=== PATIENT | female | born 1985 | race Caucasian/White ===

== ENCOUNTER 2016-08-07 19:36 | Emergency (ER) | payer OTHER ==
--- NOTE | 2016-08-07 20:13 | ED CLINICAL REPORT ---
Clinical Report - Physicians/Mid Levels [facility] [address] [place] [address] 08/07/2016 19:39 Patient: JAROD MANDUJANO Time Seen: 19:51. Arrived- By private vehicle. Historian- patient. HISTORY OF PRESENT ILLNESS Chief Complaint: BACK PAIN. Onset- several days ago and it is still present. It was gradual in onset and has been waxing/waning. Modifying factors- worsened by walking, bending over or lifting. Relieved by remaining still. It is described as being moderate in degree and in the area of the left lower lumbar spine and left SI joint. The quality is noted to be "pain" and similar to prior episodes. No radiation. No bladder dysfunction, bowel dysfunction, sensory loss or motor loss. 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 Pain started gradually. No incontinence, ataxia or other problems. Patient notes the possibility of an injury but denies injury to the head or neck. Mechanism of injury- she was lifting, turning and bending. Occurred at work. Similar symptoms previously: REVIEW OF SYSTEMS Last normal menstrual period was 3 weeks ago. No fever, chills, difficulty with urination, urinary frequency or hematuria. No skin rash, headache, sore throat, cough or difficulty breathing. No abdominal pain, nausea, vomiting, diarrhea or black stools. No bloody stools. All systems otherwise negative, except as recorded above. PAST HISTORY Negative. See nurses notes. Has not had urinary calculi. Has not had UTI. ( History of HPV). Surgeries: No history of previous surgery. SOCIAL HISTORY Smoker- current status unknown. Occasional alcohol use. No drug use. ADDITIONAL NOTES The nursing notes have been reviewed. PHYSICAL EXAM Vital Signs: 08/07/2016 19:46 BP: 131/97. HR: 85. RR: 16. O2 saturation: 100%. Temp: 98.2 F. Appearance: Alert. Patient in moderate distress. HEENT: Normal external inspection. Eyes: No scleral icterus or pale conjunctivae. ENT: Pharynx normal. Neck: Normal inspection. Neck nontender. Painless ROM. CVS: Heart sounds normal. Pulses normal. Respiratory: No respiratory distress. Breath sounds normal. Abdomen: No visible injury. Soft and nontender. No organomegaly. No mass. Back: Normal inspection. Moderate soft tissue tenderness in the left lower lumbar area. No vertebral point tenderness. Skin: No cyanosis. Skin warm and dry. Normal skin color. Normal skin turgor. Skin not cool on palpation. No skin rash or pallor. Extremities: Extremities exhibit normal ROM. No lower extremity edema. Extremities nontender. No calf tenderness. Neuro: Oriented X 3. No motor deficit. No sensory deficit. Straight leg raising: negative on the right and negative on the left. Reflexes normal. Reflex exam: right patellar 2+, left patellar 2+, right Achilles 2+ and left Achilles 2+. PROGRESS AND PROCEDURES Course of Care: Dilaudid 1 mg with Phenergan 25 mg IM given. Clearly reproducible left lower lumbar paravertebral tenderness. No reason to suspect spinal / epidural infectious process / discitis. Pt does a lot of lifting and bending with work - c/w mechanical injury. 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 Pt is informed that she will need additional imaging if not improving with symptomatic treatment as expected. She needs a pcp - I will provide contact for [facility] (her has used this clinic in the past and is happy with it). No signs of UTI. No signs of cord compression and no radicular symptoms 08/07/2016 20:50 BP: 124/83. HR: 76. RR: 16. O2 saturation: 100%. Temp: 98.2 F. Patient/family counseled. Disposition: Discharged. Condition: stable and improved. CLINICAL IMPRESSION Acute lumbar strain. INSTRUCTIONS Apply ice. Do not work for three days. Warnings: SEDATIVE MEDICATION: You were given sedative medication during your visit. Do not drive or operate dangerous machinery. CONTROLLED SUBSTANCE WARNINGS. GENERAL WARNINGS: Return or contact your physician immediately if your condition worsens or changes unexpectedly, if not improving as expected, or if other problems arise. Prescription Medications: Hydrocodone/APAP 5mg/325mg: take 1 to 2 orally every 6 hours as needed for pain. Dispense fifteen (15). No refills. Ibuprofen 600mg tablets: take 1 tablet orally every 8 hours as needed for pain. Dispense thirty (30). No refills. Flexeril 10 mg: Take 1 orally every 8 hours as needed for muscle spasm. Dispense twenty (20). No refills. Substitution is permissible. OTC Medications: Acetaminophen (available over the counter): take according to label instructions. Follow-up with: [facility], , , [address], , [place], [address] Follow up in about two days. Call for the next available appointment. (Electronically signed by Virgilio Russo DO 08/07/2016 23:26)
--- NOTE | 2016-08-07 20:13 | ED CLINICAL REPORT ---
Clinical Report - Physicians/Mid Levels [facility] [address] [place] [address] 08/07/2016 19:39 Patient: JAROD MANDUJANO Time Seen: 19:51. Arrived- By private vehicle. Historian- patient. HISTORY OF PRESENT ILLNESS Chief Complaint: BACK PAIN. Onset- several days ago and it is still present. It was gradual in onset and has been waxing/waning. Modifying factors- worsened by walking, bending over or lifting. Relieved by remaining still. It is described as being moderate in degree and in the area of the left lower lumbar spine and left SI joint. The quality is noted to be "pain" and similar to prior episodes. No radiation. No bladder dysfunction, bowel dysfunction, sensory loss or motor loss. 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 Pain started gradually. No incontinence, ataxia or other problems. Patient notes the possibility of an injury but denies injury to the head or neck. Mechanism of injury- she was lifting, turning and bending. Occurred at work. Similar symptoms previously: REVIEW OF SYSTEMS Last normal menstrual period was 3 weeks ago. No fever, chills, difficulty with urination, urinary frequency or hematuria. No skin rash, headache, sore throat, cough or difficulty breathing. No abdominal pain, nausea, vomiting, diarrhea or black stools. No bloody stools. All systems otherwise negative, except as recorded above. PAST HISTORY Negative. See nurses notes. Has not had urinary calculi. Has not had UTI. ( History of HPV). Surgeries: No history of previous surgery. SOCIAL HISTORY Smoker- current status unknown. Occasional alcohol use. No drug use. ADDITIONAL NOTES The nursing notes have been reviewed. PHYSICAL EXAM Vital Signs: 08/07/2016 19:46 BP: 131/97. HR: 85. RR: 16. O2 saturation: 100%. Temp: 98.2 F. Appearance: Alert. Patient in moderate distress. HEENT: Normal external inspection. Eyes: No scleral icterus or pale conjunctivae. ENT: Pharynx normal. Neck: Normal inspection. Neck nontender. Painless ROM. CVS: Heart sounds normal. Pulses normal. Respiratory: No respiratory distress. Breath sounds normal. Abdomen: No visible injury. Soft and nontender. No organomegaly. No mass. Back: Normal inspection. Moderate soft tissue tenderness in the left lower lumbar area. No vertebral point tenderness. Skin: No cyanosis. Skin warm and dry. Normal skin color. Normal skin turgor. Skin not cool on palpation. No skin rash or pallor. Extremities: Extremities exhibit normal ROM. No lower extremity edema. Extremities nontender. No calf tenderness. Neuro: Oriented X 3. No motor deficit. No sensory deficit. Straight leg raising: negative on the right and negative on the left. Reflexes normal. Reflex exam: right patellar 2+, left patellar 2+, right Achilles 2+ and left Achilles 2+. PROGRESS AND PROCEDURES Course of Care: Dilaudid 1 mg with Phenergan 25 mg IM given. Clearly reproducible left lower lumbar paravertebral tenderness. No reason to suspect spinal / epidural infectious process / discitis. Pt does a lot of lifting and bending with work - c/w mechanical injury. 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 Pt is informed that she will need additional imaging if not improving with symptomatic treatment as expected. She needs a pcp - I will provide contact for [facility] (her has used this clinic in the past and is happy with it). No signs of UTI. No signs of cord compression and no radicular symptoms 08/07/2016 20:50 BP: 124/83. HR: 76. RR: 16. O2 saturation: 100%. Temp: 98.2 F. Patient/family counseled. Disposition: Discharged. Condition: stable and improved. CLINICAL IMPRESSION Acute lumbar strain. INSTRUCTIONS Apply ice. Do not work for three days. Warnings: SEDATIVE MEDICATION: You were given sedative medication during your visit. Do not drive or operate dangerous machinery. CONTROLLED SUBSTANCE WARNINGS. GENERAL WARNINGS: Return or contact your physician immediately if your condition worsens or changes unexpectedly, if not improving as expected, or if other problems arise. Prescription Medications: Hydrocodone/APAP 5mg/325mg: take 1 to 2 orally every 6 hours as needed for pain. Dispense fifteen (15). No refills. Ibuprofen 600mg tablets: take 1 tablet orally every 8 hours as needed for pain. Dispense thirty (30). No refills. Flexeril 10 mg: Take 1 orally every 8 hours as needed for muscle spasm. Dispense twenty (20). No refills. Substitution is permissible. OTC Medications: Acetaminophen (available over the counter): take according to label instructions. Follow-up with: [facility], , , [address], , [place], [address] Follow up in about two days. Call for the next available appointment. (Electronically signed by Virgilio Russo DO 08/07/2016 23:26)
--- NOTE | 2016-08-07 20:14 | ED NURSING NOTES ---
Clinical Report - Nurses [facility] [address] [place] [address] 08/07/2016 19:39 [id number] Triage time 19:46 Aug 07 2016. Acuity: LEVEL 4. Chief Complaint: BACK PAIN and (mid thoracic). 19:46 08/07/16. SEPSIS SCREEN: Sepsis Screen. Negative (no infection suspected/documented). SPENSER COMA SCORE: Spenser Coma Scale: 15- eyes open spontaneously (4); best verbal response- oriented x 4 (5); best motor response- obeys commands (6). --19:51 Izzy Burgos R.N. 19:46 08/07/16. BP: 131/97. HR: 85. RR: 16. O2 saturation: 100%. Temp: 98.2 F. Pain level now 8/10. --19:51 Izzy Burgos R.N. Weight: 56.6 kg stated. Height/Length: 62 inches Per Patient. BMI: 22.8. --19:45 Izzy Burgos R.N. Medications None. --19:49 Izzy Burgos R.N. Allergies No Known Drug Allergy. --19:49 Izzy Burgos R.N. Medication/allergy information source: the patient. --19:51 Izzy Burgos R.N. History Arrived by private vehicle. Historian: patient. Accompanied by family. Onset. (5 days ago). 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 Pain started gradually. No incontinence, ataxia or other problems). She has had trouble walking. No history of recent trauma. 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 (800 mg tid, last dose 5 pm). PAST MEDICAL HX: Last normal menstrual period- 3 weeks ago. SOCIAL HX: Heavy tobacco smoker- less than 1 pack per day. Occasional alcohol use. No drug use. No infectious disease exposure. ABUSE ASSESSMENT: No report of abuse. SELF HARM ASSESSMENT: A self harm assessment was performed. The patient answered "no" to the question "Have you recently felt down, depressed, or hopeless?", "Have you noticed less interest or pleasure in doing things?", "Do you have thoughts of harming or killing yourself?", "Are you here because you tried to hurt yourself?", "Have you ever tried to hurt yourself before today?", "Have you recently had thoughts about harming or killing others?" and "Do you have any dangerous items in your possession?". NUTRITIONAL RISK ASSESSMENT: The nutritional risk assessment revealed no deficiencies. FUNCTIONAL ASSESSMENT: Functional assessment: no impairments noted. LEARNING NEEDS ASSESSMENT: The learning needs assessment revealed no barriers. SKIN INTEGRITY ASSESSMENT: Skin integrity risk assessment completed. No skin integrity risk identified. --19:51 Izzy Burgos R.N. PROBLEMS: no known problems. ADDITIONAL SURGERIES: no known surgeries. Interventions ID band on patient. --19:51 Izzy Burgos R.N. PHYSICAL ASSESSMENT 19:52 08/07/16. Ambulatory to room. GENERAL / NEURO / PSYCH: Alert. Oriented X 4. Appears in pain. RESPIRATORY: Respirations not labored. CVS: Capillary refill less than 2 seconds. GI / : Abdomen soft. EXTREMITIES: Sensation intact in extremities. ROM of extremities within normal limits. BACK: Vertebral point tenderness over the thoracic spine. Soft tissue tenderness in the left mid thoracic paraspinous region. --19:52 Izzy Burgos R.N. NURSING PROGRESS NOTES 19:50 08/07/16. The initial plan of care for this patient includes an assessment with efforts to address the presence of pain; impairment of the integumentary system. This plan of care was discussed with the patient. Reassurance given. Patient identifiers checked. Call light placed in reach. Side rails up x 1. Bed placed in lowest position. Brakes of bed on. Patient ready for evaluation. --19:52 Izzy Burgos R.N. 20:20 08/07/2016 Dilaudid (HYDROmorphone HCl PF) IM 0.5 mg given. Given in the right gluteus maximino. Allergies verified, confirmed 5 rights and sedative warning given to the patient and patient's family. --20:20 Izzy Burgos R.N. 20:20 08/07/2016 Phenergan (Promethazine HCl) IM 25 mg given. Given in the right gluteus maximino. Allergies verified, confirmed 5 rights and sedative warning given to the patient and patient's family. --20:20 Izzy Burgos R.N. DISPOSITION / DISCHARGE 20:50 08/07/16. Condition at departure: improved and stable. The goals identified in the patient's plan of care were met. No learning barriers present. Discharge instructions provided and reviewed with the patient. Reviewed medication(s) side effects, precautions, dosing and course information. Prescription(s) given to the patient. Reviewed referral to a primary care physician for followup. Summary of care provided to patient via paper. Patient verbalized understanding. Written instructions provided in [place]. The patient was discharged home and accompanied by spouse. She left the Emergency Department ambulatory and via private vehicle. Spouse driving. --21:00 Izzy Burgos R.N. 20:50 08/07/16. BP: 124/83. HR: 76. RR: 16. O2 saturation: 100%. Temp: 98.2 F. Pain level now 2/10. --21:00 Izzy Burgos R.N. Departure time: 20:50 Aug 07 2016. --21:01 Izzy Burgos R.N. Locked/Released at 08/07/2016 21:01 by Izzy Burgos R.N.
--- NOTE | 2016-08-07 20:14 | ED ORDER SUMMARY ---
..... Patient: JAROD MANDUJANO OrderSheet [facility] VisitID: [id number] [address] [place] [address] 30y, F Registration Date/Time: 08/07/2016 ORDER SHEET Weight: 56.6 kg (stated) Allergies: No Known Drug Allergy GENERAL ORDERS: MEDICATION ORDERS: Dilaudid IM 1 mg (HIGH ALERT MEDICATION, NOW) (20:06 08/07/2016 Dyan WARNER) (20:20 Olu R.N.) Phenergan IM 25 mg (HIGH ALERT MEDICATION, NOW) (20:06 08/07/2016 Dyan WARNER) (20:20 Olu R.N.) IV FLUIDS: ORDER SHEET NOTES: [Electronically signed by Izzy Burgos R.N. (21:08/07/2016)] [Electronically signed by Virgilio Russo DO (23:26 08/07/2016)] [Electronically locked/signed by Izzy Burgos R.N. (21:08/07/2016)]
--- NOTE | 2016-08-07 20:14 | ED NURSING NOTES ---
Clinical Report - Nurses [facility] [address] [place] [address] 08/07/2016 19:39 [id number] Triage time 19:46 Aug 07 2016. Acuity: LEVEL 4. Chief Complaint: BACK PAIN and (mid thoracic). 19:46 08/07/16. SEPSIS SCREEN: Sepsis Screen. Negative (no infection suspected/documented). SPENSER COMA SCORE: Spenser Coma Scale: 15- eyes open spontaneously (4); best verbal response- oriented x 4 (5); best motor response- obeys commands (6). --19:51 Izzy Burgos R.N. 19:46 08/07/16. BP: 131/97. HR: 85. RR: 16. O2 saturation: 100%. Temp: 98.2 F. Pain level now 8/10. --19:51 Izzy Burgos R.N. Weight: 56.6 kg stated. Height/Length: 62 inches Per Patient. BMI: 22.8. --19:45 Izzy Burgos R.N. Medications None. --19:49 Izzy Burgos R.N. Allergies No Known Drug Allergy. --19:49 Izzy Burgos R.N. Medication/allergy information source: the patient. --19:51 Izzy Burgos R.N. History Arrived by private vehicle. Historian: patient. Accompanied by family. Onset. (5 days ago). 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 Pain started gradually. No incontinence, ataxia or other problems). She has had trouble walking. No history of recent trauma. 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 (800 mg tid, last dose 5 pm). PAST MEDICAL HX: Last normal menstrual period- 3 weeks ago. SOCIAL HX: Heavy tobacco smoker- less than 1 pack per day. Occasional alcohol use. No drug use. No infectious disease exposure. ABUSE ASSESSMENT: No report of abuse. SELF HARM ASSESSMENT: A self harm assessment was performed. The patient answered "no" to the question "Have you recently felt down, depressed, or hopeless?", "Have you noticed less interest or pleasure in doing things?", "Do you have thoughts of harming or killing yourself?", "Are you here because you tried to hurt yourself?", "Have you ever tried to hurt yourself before today?", "Have you recently had thoughts about harming or killing others?" and "Do you have any dangerous items in your possession?". NUTRITIONAL RISK ASSESSMENT: The nutritional risk assessment revealed no deficiencies. FUNCTIONAL ASSESSMENT: Functional assessment: no impairments noted. LEARNING NEEDS ASSESSMENT: The learning needs assessment revealed no barriers. SKIN INTEGRITY ASSESSMENT: Skin integrity risk assessment completed. No skin integrity risk identified. --19:51 Izzy Burgos R.N. PROBLEMS: no known problems. ADDITIONAL SURGERIES: no known surgeries. Interventions ID band on patient. --19:51 Izzy Burgos R.N. PHYSICAL ASSESSMENT 19:52 08/07/16. Ambulatory to room. GENERAL / NEURO / PSYCH: Alert. Oriented X 4. Appears in pain. RESPIRATORY: Respirations not labored. CVS: Capillary refill less than 2 seconds. GI / : Abdomen soft. EXTREMITIES: Sensation intact in extremities. ROM of extremities within normal limits. BACK: Vertebral point tenderness over the thoracic spine. Soft tissue tenderness in the left mid thoracic paraspinous region. --19:52 Izzy Burgos R.N. NURSING PROGRESS NOTES 19:50 08/07/16. The initial plan of care for this patient includes an assessment with efforts to address the presence of pain; impairment of the integumentary system. This plan of care was discussed with the patient. Reassurance given. Patient identifiers checked. Call light placed in reach. Side rails up x 1. Bed placed in lowest position. Brakes of bed on. Patient ready for evaluation. --19:52 Izzy Burgos R.N. 20:20 08/07/2016 Dilaudid (HYDROmorphone HCl PF) IM 0.5 mg given. Given in the right gluteus maximino. Allergies verified, confirmed 5 rights and sedative warning given to the patient and patient's family. --20:20 Izzy Burgos R.N. 20:20 08/07/2016 Phenergan (Promethazine HCl) IM 25 mg given. Given in the right gluteus maximino. Allergies verified, confirmed 5 rights and sedative warning given to the patient and patient's family. --20:20 Izzy Burgos R.N. DISPOSITION / DISCHARGE 20:50 08/07/16. Condition at departure: improved and stable. The goals identified in the patient's plan of care were met. No learning barriers present. Discharge instructions provided and reviewed with the patient. Reviewed medication(s) side effects, precautions, dosing and course information. Prescription(s) given to the patient. Reviewed referral to a primary care physician for followup. Summary of care provided to patient via paper. Patient verbalized understanding. Written instructions provided in [place]. The patient was discharged home and accompanied by spouse. She left the Emergency Department ambulatory and via private vehicle. Spouse driving. --21:00 Izzy Burgos R.N. 20:50 08/07/16. BP: 124/83. HR: 76. RR: 16. O2 saturation: 100%. Temp: 98.2 F. Pain level now 2/10. --21:00 Izzy Burgos R.N. Departure time: 20:50 Aug 07 2016. --21:01 Izzy Burgos R.N. Locked/Released at 08/07/2016 21:01 by Izzy Burgos R.N.
--- NOTE | 2016-08-07 20:14 | ED ORDER SUMMARY ---
..... Patient: JAROD MANDUJANO OrderSheet [facility] VisitID: [id number] [address] [place] [place] [address] 30y, F Registration Date/Time: 08/07/2016 ORDER SHEET Weight: 56.6 kg (stated) Allergies: No Known Drug Allergy GENERAL ORDERS: MEDICATION ORDERS: Dilaudid IM 1 mg (HIGH ALERT MEDICATION, NOW) (20:06 08/07/2016 Dyan WARNER) (20:20 Olu R.N.) Phenergan IM 25 mg (HIGH ALERT MEDICATION, NOW) (20:06 08/07/2016 Dyan WARNER) (20:20 Olu R.N.) IV FLUIDS: ORDER SHEET NOTES: [Electronically signed by Izzy Burgos R.N. (21:08/07/2016)] [Electronically signed by Virgilio Russo DO (23:26 08/07/2016)] [Electronically locked/signed by Izzy Burgos R.N. (21:08/07/2016)]
--- NOTE | 2016-08-07 23:27 | ED DISCHARGE INSTRUCTIONS ---
Patient: JAROD MANDUJANO General Instructions Formerly [facility] VisitID: [id number] [address], [place] [address] 30y, F Registration Date/Time: 08/07/2016 Acute lumbar strain. INSTRUCTIONS Apply ice. Do not work for three days. Warnings: SEDATIVE MEDICATION: You were given sedative medication during your visit. Do not drive or operate dangerous machinery. CONTROLLED SUBSTANCE WARNINGS. GENERAL WARNINGS: Return or contact your physician immediately if your condition worsens or changes unexpectedly, if not improving as expected, or if other problems arise. Prescription Medications: Hydrocodone/APAP 5mg/325mg: take 1 to 2 orally every 6 hours as needed for pain. Dispense fifteen (15). No refills. Ibuprofen 600mg tablets: take 1 tablet orally every 8 hours as needed for pain. Dispense thirty (30). No refills. Flexeril 10 mg: Take 1 orally every 8 hours as needed for muscle spasm. Dispense twenty (20). No refills. Substitution is permissible. OTC Medications: Acetaminophen (available over the counter): take according to label instructions. Follow-up with: [facility], , , [address], , [place], [address] Follow up in about two days. Call for the next available appointment. ADDITIONAL INFORMATION Back Pain [Acute Or Chronic] Back pain is usually caused by an injury to the muscles or ligaments of the spine. Sometimes the disks that separate each bone in the spine may bulge and cause pain by pressing on a nearby nerve. Back pain may also appear after a sudden twisting/bending force (such as in a car accident), after a simple awkward movement, or lifting something heavy with poor body positioning. In either case, muscle spasm is often present and adds to the pain. Acute back pain usually gets better in one to two weeks. Back pain related to disk disease, arthritis in the spinal joints or spinal stenosis (narrowing of the spinal canal) can become chronic and last for months or years. Unless you had a physical injury (for example, a car accident or fall) X-rays are usually not ordered for the initial evaluation of back pain. If pain continues and does not respond to medical treatment, x-rays and other tests may be performed at a later time. Home Care: You may need to stay in bed the first few days. But, as soon as possible, begin sitting or walking to avoid problems with prolonged bed rest (muscle weakness, worsening back stiffness and pain, blood clots in the legs). When in bed, try to find a position of comfort. A firm mattress is best. Try lying flat on your back with pillows under your knees. You can also try lying on your side with your knees bent up towards your chest and a pillow between your knees. Avoid prolonged sitting. This puts more stress on the lower back than standing or walking. During the first two days after injury, apply an ICE PACK to the painful area for 20 minutes every 2-4 hours. This will reduce swelling and pain. HEAT (hot shower, hot bath or heating pad) works well for muscle spasm. You can start with ice, then switch to heat after two days. Some patients feel best alternating ice and heat treatments. Use the one method that feels the best to you. You may use acetaminophen (Tylenol) or ibuprofen (Motrin, Advil) to control pain, unless another pain medicine was prescribed. [NOTE: If you have chronic liver or kidney disease or ever had a stomach ulcer or GI bleeding, talk with your doctor before using these medicines.] Be aware of safe lifting methods and do not lift anything over 15 pounds until all the pain is gone. Follow Up with your doctor or this facility if your symptoms do not start to improve after one week. Physical therapy may be needed. [NOTE: If X-rays were taken, they will be reviewed by a radiologist. You will be notified of any new findings that may affect your care.] Get Prompt Medical Attention if any of the following occur: Pain becomes worse or spreads to your legs Weakness or numbness in one or both legs Loss of bowel or bladder control Numbness in the groin or genital area Hydrocodone Bitartrate, Acetaminophen Oral tablet What is this medicine? ACETAMINOPHEN; HYDROCODONE (a set a LINETTE rubio fen; lois droe KOE done) is a pain reliever. It is used to treat mild to moderate pain. How should I use this medicine? Take this medicine by mouth. Swallow it with a full glass of water. Follow the directions on the prescription label. If the medicine upsets your stomach, take the medicine with food or milk. Do not take more than you are told to take. Talk to your lusterer regarding the use of this medicine in children. This medicine is not approved for use in children. What side effects may I notice from receiving this medicine? Side effects that you should report to your doctor or health care transition mgr as soon as possible: allergic reactions like skin rash, itching or hives, swelling of the face, lips, or tongue breathing problems confusion feeling faint or lightheaded, falls stomach pain yellowing of the eyes or skin Side effects that usually do not require medical attention (report to your doctor or health care transition mgr if they continue or are bothersome): nausea, vomiting stomach upset What may interact with this medicine? alcohol antihistamines isoniazid medicines for depression, anxiety, or psychotic disturbances medicines for sleep muscle relaxants naltrexone narcotic medicines (opiates) for pain phenobarbital ritonavir tramadol What if I miss a dose? If you miss a dose, take it as soon as you can. If it is almost time for your next dose, take only that dose. Do not take double or extra doses. Where should I keep my medicine? Keep out of the reach of children. This medicine can be abused. Keep your medicine in a safe place to protect it from theft. Do not share this medicine with anyone. Selling or giving away this medicine is dangerous and against the law. Store at room temperature between 15 and 30 degrees C (59 and 86 degrees F). Protect from light. Keep container tightly closed. Throw away any unused medicine after the expiration date. Discard unused medicine and used packaging carefully. Pets and children can be harmed if they find used or lost packages. What should I tell my health care provider before I take this medicine? They need to know if you have any of these conditions: brain tumor Crohn's disease, inflammatory bowel disease, or ulcerative colitis drink more than 3 alcohol-containing drinks per day drug abuse or addiction head injury heart or circulation problems kidney disease or problems going to the bathroom liver disease lung disease, asthma, or breathing problems an unusual or allergic reaction to acetaminophen, hydrocodone, other opioid analgesics, other medicines, foods, dyes, or preservatives or trying to get breast-feeding What should I watch for while using this medicine? Tell your doctor or health care transition mgr if your pain does not go away, if it gets worse, or if you have new or a different type of pain. You may develop tolerance to the medicine. Tolerance means that you will need a higher dose of the medicine for pain relief. Tolerance is normal and is expected if you take the medicine for a long time. Do not suddenly stop taking your medicine because you may develop a severe reaction. Your body becomes used to the medicine. This does NOT mean you are addicted. Addiction is a behavior related to getting and using a drug for a non-medical reason. If you have pain, you have a medical reason to take pain medicine. Your doctor will tell you how much medicine to take. If your doctor wants you to stop the medicine, the dose will be slowly lowered over time to avoid any side effects. You may get drowsy or dizzy when you first start taking the medicine or change doses. Do not drive, use machinery, or do anything that may be dangerous until you know how the medicine affects you. Stand or sit up slowly. There are different types of narcotic medicines (opiates) for pain. If you take more than one type at the same time, you may have more side effects. Give your health care provider a list of all medicines you use. Your doctor will tell you how much medicine to take. Do not take more medicine than directed. Call emergency for help if you have problems breathing. The medicine will cause constipation. Try to have a bowel movement at least every 2 to 3 days. If you do not have a bowel movement for 3 days, call your doctor or health care transition mgr. Too much acetaminophen can be very dangerous. Do not take Tylenol (acetaminophen) or medicines that contain acetaminophen with this medicine. Many non-prescription medicines contain acetaminophen. Always read the labels carefully. Ibuprofen Oral tablet What is this medicine? IBUPROFEN (eye BYOO proe fen) is a non-steroidal anti-inflammatory drug (NSAID). It is used for dental pain, fever, headaches or migraines, osteoarthritis, rheumatoid arthritis, or painful monthly periods. It can also relieve minor aches and pains caused by a cold, flu, or sore throat. How should I use this medicine? Take this medicine by mouth with a glass of water. Follow the directions on the prescription label. Take this medicine with food if your stomach gets upset. Try to not lie down for at least 10 minutes after you take the medicine. Take your medicine at regular intervals. Do not take your medicine more often than directed. A special MedGuide will be given to you by the pharmacist with each prescription and refill. Be sure to read this information carefully each time. Talk to your lusterer regarding the use of this medicine in children. Special care may be needed. What side effects may I notice from receiving this medicine? Side effects that you should report to your doctor or health care transition mgr as soon as possible: allergic reactions like skin rash, itching or hives, swelling of the face, lips, or tongue black or bloody stools, blood in the urine or in vomit breathing problems changes in vision chest pain general ill feeling or flu-like symptoms nausea or vomiting redness, blistering, peeling or loosening of the skin, including inside the mouth slurred speech or weakness on one side of the body stomach pain unexplained weight gain or swelling unusually weak or tired yellowing of eyes or skin Side effects that usually do not require medical attention (report to your doctor or health care transition mgr if they continue or are bothersome): constipation or diarrhea dizziness gas or heartburn stomach upset What may interact with this medicine? Do not take this medicine with any of the following medications: cidofovir ketorolac methotrexate pemetrexed This medicine may also interact with the following medications: alcohol aspirin diuretics lithium other drugs for inflammation like prednisone warfarin What if I miss a dose? If you miss a dose, take it as soon as you can. If it is almost time for your next dose, take only that dose. Do not take double or extra doses. Where should I keep my medicine? Keep out of the reach of children. Store at room temperature between 15 and 30 degrees C (59 and 86 degrees F). Keep container tightly closed. Throw away any unused medicine after the expiration date. What should I tell my health care provider before I take this medicine? They need to know if you have any of these conditions: asthma cigarette smoker drink more than 3 alcohol containing drinks a day heart disease or circulation problems such as heart failure or leg edema (fluid retention) high blood pressure kidney disease liver disease stomach bleeding or ulcers an unusual or allergic reaction to ibuprofen, aspirin, other NSAIDS, other medicines, foods, dyes, or preservatives or trying to get breast-feeding What should I watch for while using this medicine? Tell your doctor or healthcare professional if your symptoms do not start to get better or if they get worse. This medicine does not prevent heart attack or stroke. In fact, this medicine may increase the chance of a heart attack or stroke. The chance may increase with longer use of this medicine and in people who have heart disease. If you take aspirin to prevent heart attack or stroke, talk with your doctor or health care transition mgr. Do not take other medicines that contain aspirin, ibuprofen, or naproxen with this medicine. Side effects such as stomach upset, nausea, or ulcers may be more likely to occur. Many medicines available without a prescription should not be taken with this medicine. This medicine can cause ulcers and bleeding in the stomach and intestines at any time during treatment. Ulcers and bleeding can happen without warning symptoms and can cause . To reduce your risk, do not smoke cigarettes or drink alcohol while you are taking this medicine. You may get drowsy or dizzy. Do not drive, use machinery, or do anything that needs mental alertness until you know how this medicine affects you. Do not stand or sit up quickly, especially if you are an older patient. This reduces the risk of dizzy or fainting spells. This medicine can cause you to bleed more easily. Try to avoid damage to your teeth and gums when you brush or floss your teeth. Cyclobenzaprine Hydrochloride Oral tablet What is this medicine? CYCLOBENZAPRINE (pastor hart) is a muscle relaxer. It is used to treat muscle pain, spasms, and stiffness. How should I use this medicine? Take this medicine by mouth with a glass of water. Follow the directions on the prescription label. If this medicine upsets your stomach, take it with food or milk. Take your medicine at regular intervals. Do not take it more often than directed. Talk to your lusterer regarding the use of this medicine in children. Special care may be needed. What side effects may I notice from receiving this medicine? Side effects that you should report to your doctor or health care transition mgr as soon as possible: allergic reactions like skin rash, itching or hives, swelling of the face, lips, or tongue chest pain fast heartbeat hallucinations seizures vomiting Side effects that usually do not require medical attention (report to your doctor or health care transition mgr if they continue or are bothersome): headache What may interact with this medicine? Do not take this medicine with any of the following medications: cisapride droperidol flecainide grepafloxacin halofantrine levomethadyl MAOIs like Carbex, Eldepryl, Marplan, Nardil, and Parnate nilotinib pimozide probucol sertindole This medicine may also interact with the following medications: abarelix alcohol contrast dyes dolasetron guanethidine medicines for cancer medicines for depression, anxiety, or psychotic disturbances medicines to treat an irregular heartbeat medicines used for sleep or numbness during surgery or procedure methadone octreotide ondansetron palonosetron phenothiazines like chlorpromazine, mesoridazine, prochlorperazine, thioridazine some medicines for infection like alfuzosin, chloroquine, clarithromycin, levofloxacin, mefloquine, pentamidine, troleandomycin tramadol vardenafil What if I miss a dose? If you miss a dose, take it as soon as you can. If it is almost time for your next dose, take only that dose. Do not take double or extra doses. Where should I keep my medicine? Keep out of the reach of children. Store at room temperature between 15 and 30 degrees C (59 and 86 degrees F). Keep container tightly closed. Throw away any unused medicine after the expiration date. What should I tell my health care provider before I take this medicine? They need to know if you have any of these conditions: heart disease, irregular heartbeat, or previous heart attack liver disease thyroid problem an unusual or allergic reaction to cyclobenzaprine, tricyclic antidepressants, lactose, other medicines, foods, dyes, or preservatives or trying to get breast-feeding What should I watch for while using this medicine? Check with your doctor or health care transition mgr if your condition does not improve within 1 to 3 weeks. You may get drowsy or dizzy when you first start taking the medicine or change doses. Do not drive, use machinery, or do anything that may be dangerous until you know how the medicine affects you. Stand or sit up slowly. Your mouth may get dry. Drinking water, chewing sugarless gum, or sucking on hard candy may help. Acetaminophen Oral tablet What is this medicine? ACETAMINOPHEN (a set a LINETTE rubio fen) is a pain reliever. It is used to treat mild pain and fever. How should I use this medicine? Take this medicine by mouth with a glass of water. Follow the directions on the package or prescription label. Take your medicine at regular intervals. Do not take your medicine more often than directed. Talk to your lusterer regarding the use of this medicine in children. While this drug may be prescribed for children as young as 6 years of age for selected conditions, precautions do apply. What side effects may I notice from receiving this medicine? Side effects that you should report to your doctor or health care transition mgr as soon as possible: allergic reactions like skin rash, itching or hives, swelling of the face, lips, or tongue breathing problems fever or sore throat redness, blistering, peeling or loosening of the skin, including inside the mouth trouble passing urine or change in the amount of urine unusual bleeding or bruising unusually weak or tired yellowing of the eyes or skin Side effects that usually do not require medical attention (report to your doctor or health care transition mgr if they continue or are bothersome): headache nausea, stomach upset What may interact with this medicine? alcohol imatinib isoniazid other medicines with acetaminophen What if I miss a dose? If you miss a dose, take it as soon as you can. If it is almost time for your next dose, take only that dose. Do not take double or extra doses. Where should I keep my medicine? Keep out of reach of children. Store at room temperature between 20 and 25 degrees C (68 and 77 degrees F). Protect from moisture and heat. Throw away any unused medicine after the expiration date. What should I tell my health care provider before I take this medicine? They need to know if you have any of these conditions: if you frequently drink alcohol containing drinks liver disease an unusual or allergic reaction to acetaminophen, other medicines, foods, dyes or preservatives or trying to get breast-feeding What should I watch for while using this medicine? Tell your doctor or health care transition mgr if the pain lasts more than 10 days (5 days for children), if it gets worse, or if there is a new or different kind of pain. Also, check with your doctor if a fever lasts for more than 3 days. Do not take other medicines that contain acetaminophen with this medicine. Always read labels carefully. If you have questions, ask your doctor or pharmacist. If you take too much acetaminophen get medical help right away. Too much acetaminophen can be very dangerous and cause liver damage. Even if you do not have symptoms, it is important to get help right away. You have been given the following additional information: Back Pain (Acute Or Chronic) Hydrocodone Bitartrate, Acetaminophen Oral tablet Ibuprofen Oral tablet Cyclobenzaprine Hydrochloride Oral tablet Acetaminophen Oral tablet Do not work for three days. (Electronically signed by Virgilio Russo DO 08/07/2016 23:26)
--- NOTE | 2016-08-07 23:28 | ED MED RECONCILIATION SUMMARY ---
Patient: JAROD MANDUJANO Medication Reconciliation Report [facility] VisitID: [id number] [address] [place] [address] 30y, F Registration Date/Time: 08/07/2016 Weight: 56.6 kg Height/Length: 62 in. BMI: 22.8 ALLERGIES: No Known Drug Allergy The patient's Home Medications are listed below: NONE. The source(s) of the original Home Medication information: patient The following Medications were given to the patient in the Emergency Department: Dilaudid [IM] IM 0.5 mg, administered: 08/07/2016 8:20:00 PM Phenergan [IM] IM 25 mg, administered: 08/07/2016 8:20:00 PM The following Medications were prescribed to the patient: Acetaminophen (available over the counter): take according to label instructions. -- Virgilio Russo DO Hydrocodone/APAP 5mg/325mg: take 1 to 2 orally every 6 hours as needed for pain. Dispense fifteen (15). No refills. -- Virgilio Russo DO Ibuprofen 600mg tablets: take 1 tablet orally every 8 hours as needed for pain. Dispense thirty (30). No refills. -- Virgilio Russo DO Flexeril 10 mg: Take 1 orally every 8 hours as needed for muscle spasm. Dispense twenty (20). No refills. Substitution is permissible. -- Virgilio Russo DO
--- NOTE | 2016-08-07 23:28 | ED MED RECONCILIATION SUMMARY ---
Patient: JAROD MANDUJANO Medication Reconciliation Report [facility] VisitID: [id number] [address] [place] [address] 30y, F Registration Date/Time: 08/07/2016 Weight: 56.6 kg Height/Length: 62 in. BMI: 22.8 ALLERGIES: No Known Drug Allergy The patient's Home Medications are listed below: NONE. The source(s) of the original Home Medication information: patient The following Medications were given to the patient in the Emergency Department: Dilaudid [IM] IM 0.5 mg, administered: 08/07/2016 8:20:00 PM Phenergan [IM] IM 25 mg, administered: 08/07/2016 8:20:00 PM The following Medications were prescribed to the patient: Acetaminophen (available over the counter): take according to label instructions. -- Virgilio Russo DO Hydrocodone/APAP 5mg/325mg: take 1 to 2 orally every 6 hours as needed for pain. Dispense fifteen (15). No refills. -- Virgilio Russo DO Ibuprofen 600mg tablets: take 1 tablet orally every 8 hours as needed for pain. Dispense thirty (30). No refills. -- Virgilio Russo DO Flexeril 10 mg: Take 1 orally every 8 hours as needed for muscle spasm. Dispense twenty (20). No refills. Substitution is permissible. -- Virgilio Russo DO
--- NOTE | 2016-08-07 23:28 | ED MAR SUMMARY ---
..... Medication Administration Record [facility] [address] [place] [address] Patient: JAROD MANDUJANO Visit ID: [id number] 30y, F Weight: 56.6 kg Height/Length: 62 in BMI: 22.8 ALLERGIES: No Known Drug Allergy Given 20:08/07/2016 Izzy Burgos R.N. Medication Administered: DILAUDID [IM] (HYDROMORPHONE HCL PF), Dose: 0.5 mg IM. Medication Ordered: Dilaudid IM 1 mg (HIGH ALERT MEDICATION, NOW). Given 20:08/07/2016 Izzy Burgos R.N. Medication Administered: PHENERGAN [IM] (PROMETHAZINE HCL), Dose: 25 mg IM. Medication Ordered: Phenergan IM 25 mg (HIGH ALERT MEDICATION, NOW).
--- NOTE | 2016-08-07 23:28 | ED MAR SUMMARY ---
..... Medication Administration Record [facility] [address] [place] [address] Patient: JAROD MANDUJANO Visit ID: [id number] 30y, F Weight: 56.6 kg Height/Length: 62 in BMI: 22.8 ALLERGIES: No Known Drug Allergy Given 20:08/07/2016 Izzy Burgos R.N. Medication Administered: DILAUDID [IM] (HYDROMORPHONE HCL PF), Dose: 0.5 mg IM. Medication Ordered: Dilaudid IM 1 mg (HIGH ALERT MEDICATION, NOW). Given 20:08/07/2016 Izzy Burgos R.N. Medication Administered: PHENERGAN [IM] (PROMETHAZINE HCL), Dose: 25 mg IM. Medication Ordered: Phenergan IM 25 mg (HIGH ALERT MEDICATION, NOW).
== END 2016-08-07 20:50 | disposition home or self-care (01) ==
LOC: ED SRH 19:36
DX: S39.012A Strain of muscle, fascia and tendon of lower back, initial encounter (principal); X50.0XXA Overexertion from strenuous movement or load, initial encounter; Y93.89 Activity, other specified; Y92.69 Other specified industrial and construction area as the place of occurrence of the external cause; Y99.9 Unspecified external cause status; F17.210 Nicotine dependence, cigarettes, uncomplicated